=== PATIENT | male | born 1965 | race African-American/Black ===

== ENCOUNTER 2016-08-11 17:45 | Emergency (ER) | payer BC ==
--- NOTE | ~2016-08-11 | EKG ---
PATIENT: KARIN LARSON UNIT #: [id number] Ventricular Rate: 70 BPM Atrial Rate: 70 BPM P-R Interval: 218 ms QRS Duration: 100 ms Q-T Interval: 404 ms QTC Calculation(Bezet): 436 ms P [place]: 53 degrees Calculated R [place]: 28 degrees Calculated T [place]: 31 degrees Diagnosis Line: Sinus rhythm with 1st degree A-V block Diagnosis Line: Otherwise normal ECG Diagnosis Line: When compared with ECG of 27-OCT-2014 13:59, Diagnosis Line: Nonspecific T wave abnormality, improved in Diagnosis Line: Inferior leads Diagnosis Line: T wave inversion no longer evident in Lateral Diagnosis Line: leads Diagnosis Line: Confirmed by DAYAN WANG MD ([id number]) on Diagnosis Line: 08/20/2016 8:27:51 AM INTERPRETING MD: FELIPE NG
--- NOTE | ~2016-08-11 | CT71 ---
[facility] A Service of [facility] RADIOLOGY TEXT RESULTS PATIENT: KARIN LARSON LOCATION: SED : 69 UNIT #: [id number] AGE: [address]: CECILIA MARKS SEX: M ORDER DR: [id number] [address] [address] [id number] E MR#: [id number] #: [id number] NAME: KARIN LARSON : 1965 SEX: M STUDY DATE/TIME: 08/11/2016 18:43 UNIT: SED ROOM: STUDY DESCRIPTION: CT Head Wo Contrast Attending Physician: Cecilia Marks Aprn Ordering Physician: Cecilia Marks Aprn Primary Care Physician: Lucio Galvan M.D. MEDICAL IMAGING REPORT This report is preliminary unless electronic signature is present. EXAM CT head without contrast, 08/11/[address] head without contrast dated 01/16/2016. HISTORY Patient passed out today, no obvious trauma to the head. This CT exam was performed with one or more of the following radiation dose reduction techniques: automatic exposure control, adjustment of mA and/or kV according to patient size, and iterative reconstruction. FINDINGS CT of the head was obtained without contrast in the axial plane. Hypodensities are noted in the periventricular white matter. No acute intracranial hemorrhage, space-occupying mass, mass effect or midline shift could be discerned. No fracture or obvious significant scalp swelling is seen. Mastoid air cells are well-aerated. Nasal septum is deviated to the left with moderate right contra the nurse of the middle turbinate. Small nodular mucosal thickening is in the left maxillary antra. IMPRESSION 1. Hypodensities are noted in the brain predominately in the periventricular white matter, nonspecific. It could be related to chronic microvascular ischemic change. A superimposed subtle acute abnormality cannot be excluded. 2. No obvious acute intracranial hemorrhage, space occupying mass, hydrocephalus, midline shift, fracture. [facility] A Service [facility] RADIOLOGY TEXT RESULTS PATIENT: KARIN LARSON LOCATION: SED : 69 UNIT #: [id number] AGE: [address]: CECILIA MARKS SEX: M ORDER DR: Dictated by... Mary Ann Malave M.D. THIS IS AN ELECTRONICALLY VERIFIED REPORT Mary Ann Malave M.D. at 08/12/2016 9:31 PM CPR/ljd TD: 08/12/2016 05:03 JOB #: [id number] MEDICAL IMAGING REPORT Page 1 of 1
[~2016-08-11 17:45] MED LIST: AMLODIPINE BESY10 MG PO; CLOPIDOGREL BIS75 MG PO; LIPITOR40 MG PO; METOPROLOL SUCC25 MG PO; NITROGLYCERIN0.4 MG SL
[2016-08-11] MEDS ORDERED: METOPROLOL ER-1 EACH PO (17:52)
[2016-08-11 18:53] LABS: URINE SOURCE CLEAN CATCH
[2016-08-11 18:57] LABS: URINE APPEARANCE CLEAR; URINE BILIRUBIN NEG (NEG); URINE BLOOD 1+ (NEG); URINE COLOR YELLOW; URINE GLUCOSE NEG (NORM); URINE KETONE NEG (NEG); URINE LEUKOCYTE ESTERASE NEG (NEG); URINE NITRATE NEG (NEG); URINE PH 6.5 (5-8); URINE PROTEIN NEG (NEG); URINE SPECIFIC GRAVITY <=1.005 (1.003-1.035); URINE UROBILINOGEN 0.2 MG/DL (NORM)
[2016-08-11 19:11] LABS: MICRO INDICATED? YES
[2016-08-11 19:13] LABS: CULTURE INDICATED? NO; URINE BACTERIA NEG (NEG); URINE GRANULAR CAST 0-2 /[HPF]; URINE HYALINE CAST 0-2 /[HPF]; URINE RBC 0-2 /[HPF] (0-2); URINE WBC 0-2 /[HPF] (0-5)
[2016-08-11 19:18] LABS: AMPHETAMINE NEG (NEG); BARBITURATES NEG (NEG); BENZODIAZEPINES NEG (NEG); COCAINE NEG (NEG); MARIJUANA NEG (NEG); OPIATES NEG (NEG); TRICYCLIC ANTIDEPRESSANTS NEG (NEG); U METHADONE NEG (NEG)
[2016-08-11 19:32] LABS: BASOPHIL# 0.1 X10e3 (0-0.3); BASOPHIL% 0.8 % (0-2.5); EOSINOPHIL# 0.1 X10e3 (0-0.7); EOSINOPHIL% 0.7 % (0.0-7.0); HEMATOCRIT 42.3 % (38.0-50.0); HEMOGLOBIN 14.1 gm/dL (13.0-16.0); LYMPHOCYTE# 1.5 X10e3 (1.0-3.5); LYMPHOCYTE% 16.9 % (17.0-45.0); MEAN CELL VOLUME 83.1 FL (83-96); MEAN CORPUSCULAR HEMOGLOBIN 27.7 PG (28-34); MEAN CORPUSCULAR HGB CONC 33.3 g/dL (30-36); MEAN PLATELET VOLUME 10.2 FL (6.5-11.5); MONOCYTE# 0.7 X10e3 (0-1.0); MONOCYTE% 7.3 % (3.0-12.0); NEUTROPHIL# 6.6 X10e3 (1.5-7.1); NEUTROPHIL% 74.3 % (40-75); PLATELET COUNT 262 X10e3 (140-420); RED BLOOD COUNT 5.09 X10e (3.90-5.60); RED CELL DISTRIBUTION WIDTH 14.2 % (11.0-15.5); WHITE BLOOD COUNT 8.9 X10e3 (4.0-10.5)
[2016-08-11 19:35] LABS: DIFF IND NO
[2016-08-11 19:42] LABS: POC - CKMB 2.3 ng/mL (0.0-7.9); POC - TROPONIN <0.05 ng/mL (<=0.05)
[2016-08-11 19:53] LABS: ALBUMIN SERUM 4.4 g/dL (3.5-5.0); BILIRUBIN, DIRECT 0.1 mg/dL (0.0-0.2); BILIRUBIN,INDIRECT 0.2 mg/dL (0.0-0.9); BILIRUBIN,TOTAL 0.3 mg/dL (0.2-2.0); BUN/CREATININE RATIO 16.47; CALCIUM SERUM 9.5 mg/dL (8.4-10.2); CREATININE SERUM 1.7 mg/dL (0.6-1.4); GLOM FILT RATE Estimated 54.1 mL/min (>60); PROTEIN TOTAL SERUM 8.1 g/dL (6.0-8.3)
== END 2016-08-11 22:15 | disposition home or self-care (01) ==
LOC: SED 17:45
PROVIDERS: Nurse Practitioner Family
DX: E86.0 Dehydration (principal); I10 Essential (primary) hypertension; I25.2 Old myocardial infarction
CPT/HCPCS: 36415; 70450; 80048; 80076; 80307; 81003; 82553; 82947; 84484; 85025; 93005; 99284